=== PATIENT | male | born 2000 | race Caucasian/White ===

== ENCOUNTER 2023-06-18 01:11 | Emergency (ER) | payer OTHER ==
[~2023-06-18] VITALS: Ht 170.2 cm; Wt 65.0 kg
[2023-06-18 01:18] VITALS: TEMP 98.3
[2023-06-18 02:53] VITALS: BP 120/78; PULSE 78; RESP 18
== END 2023-06-18 04:00 | disposition home or self-care (01) ==
LOC: EMS 01:11
DX: S51.812A Laceration without foreign body of left forearm, initial encounter (principal); W25.XXXA Contact with sharp glass, initial encounter; Y93.61 Activity, american tackle football; Y92.89 Other specified places as the place of occurrence of the external cause; Y99.8 Other external cause status
CPT/HCPCS: 12032; 99284; 73090-TC; Z7502